=== PATIENT | male | born 1940 | race African-American/Black ===

== ENCOUNTER 2017-11-11 13:30 | Outpatient (RCR) | payer MEDICARE, BC | END 2017-12-07 | disposition home or self-care (01) | LOC: PTY 13:30 | DX: I69.851 Hemiplegia and hemiparesis following other cerebrovascular disease affecting right dominant side (principal); R26.9 Unspecified abnormalities of gait and mobility | CPT/HCPCS: 97110; 97162; G8978; G8979 ==

== ENCOUNTER 2017-12-08 14:15 | Outpatient (RCR) | payer MEDICARE, BC | END 2018-01-07 | disposition home or self-care (01) | LOC: PTY 14:15 | DX: I69.851 Hemiplegia and hemiparesis following other cerebrovascular disease affecting right dominant side (principal); R26.9 Unspecified abnormalities of gait and mobility ==

== ENCOUNTER 2018-06-29 14:45 | Outpatient (RCR) | payer MEDICARE, BC | END 2018-07-09 | disposition home or self-care (01) | LOC: PTY 14:45 | DX: I69.851 Hemiplegia and hemiparesis following other cerebrovascular disease affecting right dominant side (principal) | CPT/HCPCS: 97162; G8978; G8979 ==

== ENCOUNTER 2019-02-19 17:30 | Emergency (ER) | payer MEDICARE, BC ==
[~2019-02-19] VITALS: Ht 170.2 cm; Wt 76.2 kg
[2019-02-19 18:03] VITALS: BP 125/72
--- NOTE | 2019-02-19 18:21 | Emergency Room Report ---
History of Present Illness General Chief Complaint: Male Urogenital Problems Source: Patient Present Illness HPI 78-year-old male past with history of stroke presents with hematuria, trace, x1 day, denies pain no aggravating or alleviating factors, patient denies any dysuria, patient denies any fevers chills chest pain shortness of breath, patient was a former smoker, patient presents for evaluation, Allergies: Coded Allergies: No Known Allergies (Unverified , 11/11/17) Patient History Past Medical History: see triage record Reviewed Nursing Documentation: PMH: Agreed; PSxH: Agreed Nursing Documentation-PMH Past Medical History: No History, Except For Hx Hypertension: Yes Hx Cerebrovascular Accident: Yes Review of Systems Constitutional: Denies: chills, fever Eye: Denies: blurred vision, double vision ENT: Denies: throat pain, nasal discharge Respiratory: Denies: cough, shortness of breath Cardiovascular: Denies: chest pain, palpitations Gastrointestinal: Denies: abdominal pain, diarrhea, nausea, vomiting Genitourinary: Reports: hematuria; Denies: pain Musculoskeletal: Denies: back pain, muscle pain Skin: Denies: rash, lesions Neurological: Denies: headache, focal weakness Hematologic/Lymphatic: Denies: easy bleeding, easy bruising All Other Systems: negative except mentioned in HPI Physical Exam Vital Signs Date Time Temp Pulse Resp B/P (MAP) Pulse Ox O2 Delivery O2 Flow Rate FiO2 02/19/19 17:51 98.2 114 18 125/72 (89) 95 Room Air Sp02 EP Interpretation: reviewed, normal General Appearance: well appearing, no apparent distress, alert Head: normocephalic, atraumatic Eyes: bilateral eye PERRL, bilateral eye EOMI ENT: uvula midline, moist mucus membranes Neck: supple, thyroid normal, supple/symm/no masses Respiratory: lungs clear, no respiratory distress, no retraction, no accessory muscle use Cardiovascular #1: normal peripheral pulses, regular rate, rhythm, no edema, no gallop, no murmur Gastrointestinal: non tender, soft, no guarding, no rebound Genitourinary: no CVA tenderness Musculoskeletal: normal inspection Neurologic: alert, oriented x3 Psychiatric: mood/affect normal Skin: no rash, warm/dry Medical Decision Making Diagnostic Impression: Primary Impression: UTI (urinary tract infection) ER Course 78-year-old male with intermittent hematuria, not seema, trace, with no pain on urination, patient found to have a UTI, low concern for intra-abdominal pathology, patient's abdomen soft and nontender, patient given ceftriaxone in the emergency room, labs are drawn, disposition home with return precautions not tachycardic on exam, disposition home with return precautions Laboratory Tests Test 02/19/19 18:50 02/19/19 20:25 White Blood Count 10.5 K/UL (4.8-10.8) Red Blood Count 4.18 M/UL (4.70-6.10) L Hemoglobin 12.9 G/DL (14.2-18.0) L Hematocrit 38.7 % (42.0-52.0) L Mean Corpuscular Volume 93 FL (80-99) Mean Corpuscular Hemoglobin 30.8 PG (27.0-31.0) Mean Corpuscular Hemoglobin Concent 33.3 G/DL (32.0-36.0) Red Cell Distribution Width 11.3 % (11.6-14.8) L Platelet Count 239 K/UL (150-450) Mean Platelet Volume 5.9 FL (6.5-10.1) L Neutrophils (%) (Auto) 68.7 % (45.0-75.0) Lymphocytes (%) (Auto) 23.4 % (20.0-45.0) Monocytes (%) (Auto) 4.3 % (1.0-10.0) Eosinophils (%) (Auto) 2.4 % (0.0-3.0) Basophils (%) (Auto) 1.2 % (0.0-2.0) Prothrombin Time 13.6 SEC (9.30-11.50) H Prothrombin Time INR 1.3 (0.9-1.1) H PTT 43 SEC (23-33) H Urine Color Red Urine Appearance Cloudy Urine pH 6.5 (4.5-8.0) Urine Specific [place] 1.025 (1.005-1.035) Urine Protein 3+ (NEGATIVE) H Urine Glucose (UA) Negative (NEGATIVE) Urine Ketones 2+ (NEGATIVE) H Urine Blood 5+ (NEGATIVE) H Urine Nitrite Negative (NEGATIVE) Urine Bilirubin Negative (NEGATIVE) Urine Urobilinogen Normal MG/DL (0.0-1.0) Urine Leukocyte Esterase 2+ (NEGATIVE) H Urine RBC Tntc /HPF (0 - 0) H Urine WBC 5-10 /HPF (0 - 0) H Urine Squamous Epithelial Cells None /LPF (NONE/OCC) Urine Bacteria Moderate /HPF (NONE) H Urine Yeast Few /HPF (NONE) H Sodium Level 139 MMOL/L (136-145) 141 MMOL/L (136-145) Potassium Level 6.2 MMOL/L (3.5-5.1) *H 4.4 MMOL/L (3.5-5.1) Chloride Level 105 MMOL/L (98-107) 106 MMOL/L (98-107) Carbon Dioxide Level 22 MMOL/L (21-32) 24 MMOL/L (21-32) Anion Gap 11 mmol/L (5-15) 11 mmol/L (5-15) Blood Urea Nitrogen 16 mg/dL (7-18) 16 mg/dL (7-18) Creatinine 1.2 MG/DL (0.55-1.30) 1.2 MG/DL (0.55-1.30) Estimate Glomerular Filtration Rate mL/min (>60) mL/min (>60) Glucose Level 119 MG/DL (74-106) H 89 MG/DL (74-106) Calcium Level 10.1 MG/DL (8.5-10.1) 10.1 MG/DL (8.5-10.1) Total Bilirubin 0.4 MG/DL (0.2-1.0) Aspartate Amino Transferase (AST) 29 U/L (15-37) Alanine Aminotransferase (ALT) 10 U/L (12-78) L Alkaline Phosphatase 113 U/L (46-116) Total Protein 6.9 G/DL (6.4-8.2) Albumin 3.5 G/DL (3.4-5.0) Globulin 3.4 g/dL Albumin/Globulin Ratio 1.0 (1.0-2.7) Rhythm Strip Diag. Results Rhythm Strip Time: 21:19 EP Interpretation: yes Rate: 85 Rhythm: NSR, no PVC's, no ectopy Last Vital Signs Date Time Temp Pulse Resp B/P (MAP) Pulse Ox O2 Delivery O2 Flow Rate FiO2 02/19/19 18:03 98.2 18 125/72 95 Room Air 02/19/19 17:51 114 Disposition: HOME, SELF-CARE Condition: Improved Scripts Cephalexin* (CEPHALEXIN*) 500 Mg Tablet 500 MG ORAL EVERY 6 HOURS, #28 CAP Prov: Marcelo Montilla M.D. 02/19/19 Referrals: [facility] Patient Instructions: Urinary Tract Infection Additional Instructions: The patient was provided with discharge instructions, notified to follow-up with a primary care doctor and or specialist in the next 24-48 hours, and to return to the ED if they have worsening of their symptoms. Please note that this report is being documented using [employer] technology. This can lead to erroneous entry secondary to incorrect interpretation by the dictating instrument. Marcelo Montilla M.D. Feb 19, 2019 18:21
[2019-02-19 19:13] LABS: APPEARANCE,URINE CLOUDY; BILIRUBIN, URINE NEGATIVE (NEGATIVE); COLOR,URINE RED; GLUCOSE, URINE (UA) NEGATIVE (NEGATIVE); KETONES,URINE 2+ (NEGATIVE); LEUKOCYTE ESTERASE ,URINE 2+ (NEGATIVE); NITRITE,URINE NEGATIVE (NEGATIVE); PH,URINE 6.5 (4.5-8.0); PROTEIN,URINE 3+ (NEGATIVE); UROBILINOGEN,URINE NORMAL MG/DL (0.0-1.0)
[2019-02-19 19:15] LABS: BASOPHILS % (AUTO) 1.2 % (0.0-2.0); EOSINOPHILS % (AUTO) 2.4 % (0.0-3.0); HEMATOCRIT 38.7 % (42.0-52.0); HEMOGLOBIN 12.9 G/DL (14.2-18.0); LYMPHOCYTES % (AUTO) 23.4 % (20.0-45.0); MEAN CORPUSCULAR VOLUME 93 FL (80-99); MONOCYTES % (AUTO) 4.3 % (1.0-10.0); NEUTROPHILS % (AUTO) 68.7 % (45.0-75.0); PLATELET COUNT 239 K/UL (150-450); RED BLOOD COUNT 4.18 M/UL (4.70-6.10); RED CELL DISTRIBUTION WIDTH 11.3 % (11.6-14.8); WHITE BLOOD COUNT 10.5 K/UL (4.8-10.8)
--- NOTE | 2019-02-19 19:16 | NUR ---
ED Nurse Note: mihaela andrea done blood and urine sent vss will monitor pt A&O X4
--- NOTE | 2019-02-19 19:20 | NUR ---
RECIEVED REPORT TO RESUME CARE, PT IN BED AWAKE, ALERT AND ORIENTED X 4, READING BOOK, PT IS ON CARDIAC MONITORING, V/S STABLE, IV SITE PATENT, PT BEING SEEN FOR HEMATURIA AND WAITING FOR RESULTS OF BLOOD AND URINE, WILL RESUME CARE ORDERED AND CLOSELY MONITOR.
[2019-02-19 19:22] LABS: INR 1.3 (0.9-1.1)
[2019-02-19 19:26] LABS: ALANINE AMINOTRANSFERASE 10 U/L (12-78); ALBUMIN 3.5 G/DL (3.4-5.0); ALKALINE PHOSPHATASE 113 U/L (46-116); ANION GAP 11 mmol/L (5-15); ASPARTATE AMINO TRANSFERASE 29 U/L (15-37); BILIRUBIN,TOTAL 0.4 MG/DL (0.2-1.0); BLOOD UREA NITROGEN 16 mg/dL (7-18); CALCIUM 10.1 MG/DL (8.5-10.1); CARBON DIOXIDE 22 MMOL/L (21-32); CHLORIDE 105 MMOL/L (98-107); CREATININE 1.2 MG/DL (0.55-1.30); SODIUM 139 MMOL/L (136-145)
[2019-02-19 19:27] LABS: POTASSIUM 6.2 MMOL/L (3.5-5.1)
[2019-02-19 19:30] VITALS: BP 142/75
[2019-02-19] MEDS ORDERED: cefTRIAXone 1 GM in NS 55 ML IVPB ONE (19:45)
[2019-02-19 20:55] LABS: ANION GAP 11 mmol/L (5-15); BLOOD UREA NITROGEN 16 mg/dL (7-18); CALCIUM 10.1 MG/DL (8.5-10.1); CARBON DIOXIDE 24 MMOL/L (21-32); CHLORIDE 106 MMOL/L (98-107); CREATININE 1.2 MG/DL (0.55-1.30); POTASSIUM 4.4 MMOL/L (3.5-5.1); SODIUM 141 MMOL/L (136-145)
[2019-02-19] MEDS ORDERED: CEPHALEXIN500 M1 ORAL (21:15)
[2019-02-19 21:20] VITALS: BP 150/89
--- NOTE | 2019-02-19 21:45 | NUR ---
ED Nurse Note: pt completed iv antibiotic, tolerated well, no s/s of adverse reaction noted, pt is being d/c to home, pt is awake, alert and oriented x 4, denies pain, no sob or labored brething, pt take away attendant is present and going home with pt, pt leaving via wheelchair with her assistance, reviewed with pt and caretakef f/u info and after care instructions, both parties re-verbalizes importance of taking all prescribed meds and s/s to monitor for, iv line and armband removed, nad noted during d/c to home.
[2019-02-19 21:58] VITALS: BP 150/89
== END 2019-02-19 22:00 | disposition home or self-care (01) ==
LOC: EMR 20:03
DX: N39.0 Urinary tract infection, site not specified (principal); I10 Essential (primary) hypertension; Z86.73 Personal history of transient ischemic attack (TIA), and cerebral infarction without residual deficits; Z87.891 Personal history of nicotine dependence
CPT/HCPCS: 36415; 80048; 80053; 81003; 85025; 85610; 85730; 87086; 96365; 99284; J0696